=== PATIENT | male | born 1995 | race Hispanic/Latino ===

== ENCOUNTER 2016-10-10 00:53 | Emergency (ER) | payer OTHER ==
[~2016-10-10] VITALS: Ht 177.8 cm; Wt 95.5 kg
[2016-10-10 01:17] VITALS: BP 152/95; PULSE 114; RESP 18; O2SAT 98
--- NOTE | 2016-10-10 01:49 | ED.REPORT ---
HPI-Extremity Problem Upper Date of Service Oct 10, 2016 ED Provider: Srinivasa Haddad MD Patient is a 21 year old male who presents to the ED complaining of a R shoulder injury onset 0030 today. He states that he was sitting on the floor when his friend stepped on his hand, twisting his arm and causing pain in his shoulder. Associated symptoms include pain in his R hand and wrist, numbness, and tingling. He denies weakness, neck pain, or any other symptoms. Nursing Notes Stated Complaint: RT SHOULDER INJURY Chief Complaint: Extremity Trauma Nursing Notes Reviewed: Yes Allergies: Coded Allergies: No Known Allergies (Unverified , 10/10/16) Scheduled PRN Ibuprofen (Ibuprofen) 800 Mg Tablet 800 MG PO TID PRN PRN For Pain General Time Seen by MD: 01:48 Chief Complaint Shoulder injury right Hx Obtained From: Patient Arrived By: Walk-in Past Medical History Past Medical History Healthy Past Surgical History Reports: Appendectomy Smoking History Former Smoker Social History Alcohol Use: "Social" Drug Use: THC Ambulatory Status Independent Review of Systems Musculoskeletal: Reports: Extremity pain (R arm), Joint pain (R shoulder and wrist ), Denies: Neck pain Neurologic: Reports: Numbness, Denies: Weakness Complete sys rev & neg: except as marked. Physical Exam Initial Vital Signs Vital Signs (First) Date Time Temp Pulse Resp B/P Pulse Ox O2 Delivery O2 Flow Rate FiO2 10/10/16 01:17 36.2 114 18 152/95 98 Room Air General/Constitutional: Well-developed, Well-nourished Head / Eyes: Atraumatic, Normocephalic Neck: Full range of motion Respiratory: No respiratory distress Skin: Warm, Dry Neurologic: Alert, Oriented, Nonfocal Psychiatric: Mood/affect normal, Behavior normal, Normal thought content Right Shoulder: Positive: Abduction reduced (Limited to 45 degrees), Negative: Deformity present R shoulder is normal to palpation and visually. Good active ROM Interpretation & Diagnostics X-Ray Interpretation Xray Interpretation: No acute silva abnormality Study Performed: R shoulder 3 view X-Ray Ordered: Shoulder right Interpretation / Wet Read by: Interpret - ED physician Re-Eval/Medical Decision Re-Evaluation/Progress : Time of Eval: 02:55 Re-Evaluation/Progress Note: Rechecked patient. Discussed plan for discharge. Patient understands and agrees with plan. All questions addressed at this time. Counseled Regarding: Diagnosis, Lab results, Need for follow-up, When/why to return to ED Discharge & Departure Impression: Primary Impression: Muscle strain Disposition: Home Discharge Condition All VS Reviewed: Yes Condition: Stable Patient Instructions: Muscle Strain (ED) Additional Instructions: Ice to sore areas, keep ice wrapped in a cloth. We advised on for about 15 minutes and then remove repeat this 4 times a day. Ibuprofen 800 mg 3 times a day take with food. Do not then 20 pounds or perform any repetitive motions with right shoulder until symptoms have resolved. Follow up with [facility] in 7-10 days Referrals: [facility] Scribe Attestation Portions of this note were transcribed by Elvis Jacob. I, Dr. Haddad personally performed the history, physical exam and medical decision-making; I reviewed and confirmed the accuracy of the information in the transcribed note. Signed by: Elvis Jacob 10/10/16, 0303 copies to: [facility] Srinivasa Haddad MD Oct 10, 2016 01:49 ELVIS JACOB Oct 10, 2016 01:57
[2016-10-10] MEDS ORDERED: IBUP800T28 PO (03:01)
[2016-10-10 03:12] VITALS: BP 126/81; PULSE 89; RESP 18; O2SAT 96
--- NOTE | 2016-10-10 08:31 | DRSVH ---
PROCEDURE: X-RAY RIGHT SHOULDER, MINIMUM TWO VIEWS ([id number]) INDICATIONS: 21-year-old male with chronic right shoulder pain. TECHNIQUE: 3 views of the shoulder were acquired. COMPARISON: None. FINDINGS: Bones: No fractures or dislocations. No suspicious bony lesions. Visualized ribs appear intact. Soft tissues: No suspicious soft tissue calcifications. IMPRESSION: No acute bony injuries of the right shoulder girdle. Dictated by: Myles Powell M.D. on 10/10/2016 at 8:29 Approved by: Myles Powell M.D. on 10/10/2016 at 8:30
== END 2016-10-10 03:13 | disposition home or self-care (01) ==
LOC: SED 00:53
DX: S46.911A Strain of unspecified muscle, fascia and tendon at shoulder and upper arm level, right arm, initial encounter (principal); W51.XXXA Accidental striking against or bumped into by another person, initial encounter; Y93.89 Activity, other specified; Y92.89 Other specified places as the place of occurrence of the external cause; Y99.8 Other external cause status; M25.531 Pain in right wrist; M79.641 Pain in right hand; Z87.891 Personal history of nicotine dependence

== ENCOUNTER 2017-02-28 00:42 | Emergency (ER) | payer OTHER ==
[~2017-02-28 00:42] MED LIST: IBUP800T28 PO
[2017-02-28 00:53] VITALS: BP 168/92; PULSE 145; RESP 22; O2SAT 99
--- NOTE | 2017-02-28 01:06 | ED.REPORT ---
HPI-Extremity Problem Upper Date of Service Feb 28, 2017 ED Provider: Dr. Armstrong 21 y/o male with no pertinent hx presents to the ED complaining of left shoulder pain that radiates down his arm, onset yesterday. The pt was pulling something at work when he heard a pop and has been unable to move his shoulder since. Associated sx include left arm numbness, pain extending into his neck and one episode of vomiting. The pt also complains of congested chest and mild, intermittent dyspnea for about a year. He reports using marijuana earlier yesterday and states it helps with his sx. Nursing Notes Stated Complaint: L SHOULDER PAIN,UNABLE TO MOVE IT Chief Complaint: Extremity Trauma Nursing Notes Reviewed: Yes Allergies: Coded Allergies: No Known Allergies (Unverified , 02/28/17) Scheduled Famotidine (Pepcid) 20 Mg Tablet 20 MG PO BID Scheduled PRN Ibuprofen (Ibuprofen) 800 Mg Tablet 800 MG PO TID PRN PRN For Pain Naproxen (Naprosyn) 500 Mg Tablet 500 MG PO BID PRN PRN For Pain Tramadol (Tramadol) 50 Mg Tablet 100 MG PO Q6H PRN PRN For Pain General Time Seen by MD: 01:05 Chief Complaint Shoulder injury left Hx Obtained From: Patient Arrived By: Walk-in Onset Occurred: Yesterday Symptom Duration: Since onset Location: : Shoulder left Quality: Painful Severity: Current: Moderate Severity: Maximum: Moderate Recent Healthcare: No recent doctor visit Similar Sx Previous: No Past Medical History Past Medical History none reported Past Surgical History Reports: Appendectomy Smoking History Former Smoker Social History Alcohol Use: "Social" Drug Use: THC Ambulatory Status Independent Review of Systems Musculoskeletal: Reports: Back pain (left arm), Joint pain (left shoulder), Neck pain Complete sys rev & neg: except as marked. Respiratory: Reports: Shortness of breath Cardiovascular: Reports: Chest pain (chest congestion) Physical Exam Initial Vital Signs Vital Signs (First) Date Time Temp Pulse Resp B/P Pulse Ox O2 Delivery O2 Flow Rate FiO2 02/28/17 00:53 145 22 168/92 99 Room Air Initial VS: Reviewed Neck: Supple, Non-tender, Full range of motion Respiratory: Breath sounds normal, No respiratory distress Cardiovascular: Regular rate & rhythm, Heart sounds normal Lower Extremities: Vascular intact, Neuro intact, No swelling, No tenderness Skin: Warm, Dry, No cyanosis Neurologic: Alert, Oriented, Nonfocal General/Constitutional: Awake, Alert, Cooperative Behavior: Positive: Anxious Upper Extremity / MS: Atraumatic, No swelling, No deformity, Neurologic intact , Vascular intact Shoulder guarded and tender Wrist / Hand: Atraumatic, Inspection NL, Full range of motion, No deformity, Neurologic intact, Vascular intact Head / Eyes: Atraumatic, Normocephalic Injected sclera bilaterally Interpretation & Diagnostics X-Ray Interpretation Xray Interpretation: No dislocation or fracture. X-Ray Ordered: Shoulder left Interpretation / Wet Read by: Wet read ED physician Re-Eval/Medical Decision Med Decision/Clinical Course 21-year-old with shoulder pain and occurred after pulling heavily on an object at work. He noted a popping sensation in the shoulder and now has stiffness and tenderness in his shoulder. Shoulder is in position and is not dislocated. He does fairly heavy weight lifting and may have injured this shoulder in the past. Sound of this and the appearance is consistent with a rotator cuff injury, possibly with an exacerbation by rotating his trochanter through the rotator cuff defect. No immediate indication for advanced imaging unless he fails to respond to conservative measures. Follow up with orthopedics in the office. Return if any immediate issues. He brings up an incidental complaint of chest pressure with breathing. This been present intermittently for more than a year. No indication of any acute pulmonary cardiac pathology presently. Discharged in stable condition. Re-Evaluation/Progress #1: Time of Eval: 01:27 Re-Evaluation/Progress Note: Discussed imaging results, diagnosis and plan to discharge. Pt understands and agrees with the plan. F/U instructions and RTER warning given. All questions addressed. Re-Evaluation/Progress #2: Time of Eval: 01:48 Re-Evaluation/Progress Note: Pt requested an MRI. Informed the pt an MRI may not be necessary and can not be done until a few hours. The pt understands and agrees with the plan to be discharged without further evaluation. All questions answered. Counseled Regarding: Diagnosis, Need for follow-up, When/why to return to ED Discharge & Departure Impression: Primary Impression: Injury of left rotator cuff Encounter type: initial encounter Qualified Code: S46.002A - Unspecified injury of muscle(s) and tendon(s) of the rotator cuff of left shoulder, initial encounter Disposition: Home Discharge Condition All VS Reviewed: Yes Condition: Stable Patient Instructions: Rotator Cuff Injury (ED) Additional Instructions: The mechanism of injury and the negative x-ray suggests this is a rotator cuff injury. He may have had a prior injury and just rotated an irregularity of the humeral head through the defect and caused bleeding and swelling. Begin Naprosyn 500 mg twice daily. Tramadol two tablets up to four times daily if needed additionally Ice frequently tonight and begin heat after tomorrow morning Follow-up with your doctor in the office. Follow-up with orthopedics in the office. Return if you develop numbness, muscular weakness, or other new symptoms of concern. Referrals: Masood Jolly MD [facility] Scribe Attestation Portions of this note were transcribed by Matt Hannah. I, , personally performed the history, physical exam and medical decision- making;I reviewed and confirmed the accuracy of the information in the transcribed note. Signed by Ira Pierre. 02/28/17 01:50 copies to: Masood Jolly MD; [facility] Alex Armstrong MD Feb 28, 2017 01:06 Matt Hannah Feb 28, 2017 01:18
[2017-02-28 01:17] VITALS: BP 163/95; PULSE 125; RESP 18; O2SAT 99
[2017-02-28] MEDS ORDERED: NAPR500T PO (01:40)
[2017-02-28] MEDS ORDERED: TRAM50TA2 PO (01:41)
[2017-02-28] MEDS ORDERED: FAMO20T PO (01:41)
[2017-02-28 02:00] VITALS: BP 129/78; PULSE 99; RESP 18; O2SAT 96
--- NOTE | 2017-02-28 08:18 | DRSVH ---
PROCEDURE: X-RAY LEFT SHOULDER, MINIMUM TWO VIEWS ([id number]) INDICATIONS: pain no trauma TECHNIQUE: 4 views of the shoulder were acquired. COMPARISON: None. FINDINGS: Bones: No fractures or dislocations. No suspicious bony lesions. Visualized ribs appear intact. Soft tissues: No suspicious soft tissue calcifications. IMPRESSION: No fractures or dislocations. Dictated by: Enrique Lazaro M.D. on 02/28/2017 at 8:16 Approved by: Enrique Lazaro M.D. on 02/28/2017 at 8:16
== END 2017-02-28 02:01 | disposition home or self-care (01) ==
LOC: SED 00:42
DX: S46.002A Unspecified injury of muscle(s) and tendon(s) of the rotator cuff of left shoulder, initial encounter (principal); Z87.891 Personal history of nicotine dependence; Z79.1 Long term (current) use of non-steroidal anti-inflammatories (NSAID); X50.1XXA Overexertion from prolonged static or awkward postures, initial encounter; Y93.89 Activity, other specified; Y99.0 Civilian activity done for income or pay; Y92.59 Other trade areas as the place of occurrence of the external cause
CPT/HCPCS: 73030; 96372; 99284; J1885